=== PATIENT | male | born 1970 | race Caucasian/White ===

== ENCOUNTER → 2017-12-18 14:22 | Outpatient (CLI) | payer OTHER, SELFPAY ==
--- NOTE | 2017-12-18 14:49 | DI.REPORT_ITS ---
SYMPTOMS/DIAGNOSIS: PAIN, SWELLING, LEG MASS, R22.40, ? DVT LEFT LEG ULTRASOUND: There is no evidence of DVT. There is an irregular-shaped hypoechoic heterogeneous mass in the lower leg just superior and medial to the ankle, which does not exhibit color flow. This mass measures 1.1 x 0.8 x 0.5 cm. The findings to be correlated with the patient's clinical status.
== END ==
PROVIDERS: PCP Family Medicine; Visit Provider Nurse Practitioner
DX: R22.42 Localized swelling, mass and lump, left lower limb (principal); M79.605 Pain in left leg
CPT/HCPCS: 93971

== ENCOUNTER 2018-03-03 01:26 | Outpatient (CLI) | payer OTHER, SELFPAY ==
--- NOTE | 2018-03-03 | PFT_ITS ---
PULMONARY FUNCTION TEST REPORT Patient identification - Pawel Madison DATE OF - 70 DATE OF SERVICE - 03/03/2018 REQUESTING PROVIDER - Caitlyn Handy NP INTERPRETATION OF STUDY Spirometry shows no evidence of obstructive airways disease. No bronchodilator response. LUNG VOLUMES - Lung volumes show no evidence of restriction. There is mild hyperinflation and air trapping. DIFFUSION CAPACITY- Normal. AIRWAY RESISTANCE - Normal. IMPRESSION Normal pulmonary function study. Clinical correlation recommended. Simin Felder/jam T - 03/04/2018 METHACHOLINE CHALLENGE TEST REPORT Patient identification - Pawel Madison DATE OF [facility] - 70 DATE OF SERVICE - 03/03/2018 REQUESTING PROVIDER - Caitlyn Handy NP INTERPRETATION OF STUDY Good patient effort after normal pulmonary function testing. Methacholine challenge testing was carried out up to a methacholine concentration of 2 mg/ml at which point, the patient had a 26% drop in FEV1. IMPRESSION Strongly positive methacholine challenge test, clinical correlation recommended. Simin Felder T - 03/04/2018
== END 2018-03-03 01:46 ==
PROVIDERS: PCP Nurse Practitioner Family; Visit Provider Nurse Practitioner Family
DX: R06.00 Dyspnea, unspecified (principal); R07.89 Other chest pain
CPT/HCPCS: 94060; 94150; 94726; 94729; 95070; 94010; J7674

== ENCOUNTER 2019-07-19 16:54 | Outpatient (REF) | payer OTHER, SELFPAY ==
[2019-07-19 20:55] LABS: Calculated LDL 108 mg/dL (<100); Cholesterol 177 mg/dL (<200); HDL Cholesterol 39 mg/dL (40-60); Triglyceride 153 mg/dL (<150)
== END 2019-07-19 17:14 ==
LOC: NCHCN 16:54
PROVIDERS: PCP Nurse Practitioner Family; Visit Provider Nurse Practitioner Family
DX: Z00.00 Encounter for general adult medical examination without abnormal findings (principal); Z13.220 Encounter for screening for lipoid disorders; J45.20 Mild intermittent asthma, uncomplicated; R51 Headache
CPT/HCPCS: 80061

== ENCOUNTER 2023-01-16 10:36 | Day surgery (SDC) | payer OTHER, SELFPAY ==
--- NOTE | 2023-01-15 21:57 | W.PM.DSUDISC ---
Date of service: 01/16/23 Time of Service: 13:30 Discharge Plan Disposition Patient Disposition: Home Condition: Good Discharge Details Reason For Visit: Screening colonoscopy Attending Provider: Amol Curry Primary Care Provider: Caitlyn Handy Home Meds and New Rx's Prescriptions: Continued loratadine 10 mg tablet 10 mg PO DAILY fluticasone propionate 50 mcg/actuation spray,suspension 1 spray intranasal DAILY Rx Instructions: administer into each nostril albuterol sulfate 90 mcg/actuation HFA aerosol inhaler 2 puff inhalation Q6H PRN calcium carbonate [Calcium 500] 500 MG tablet 500 mg PO DAILY diphenhydramine HCl [Benadryl] 25 MG capsule 25 mg PO DIRECTED melatonin-pyridoxine HCl (B6) 1 EACH tablet 10 mg PO HS Discontinued polyethylene glycol 3350 17 gram/dose powder 17 g PO ONCE Qty: 238 0RF Rx Instructions: Take per colonoscopy instructions provided by ordering providers office bisacodyl [Dulcolax (bisacodyl)] 5 mg tablet,delayed release (DR/EC) 5 mg PO ONCE Qty: 4 0RF Rx Instructions: Take per colonoscopy instructions provided by ordering providers office Discharge Instructions Additional Instructions: Right, you did great with your colonoscopy today. The quality of your prep was excellent. I had great visualization. The colonoscopy was totally normal. I did not see any evidence of tumors or polyps. You should consider another screening colonoscopy in 10 years. 1. If tolerated, consume a soft, low fiber diet for 1-2 days. 2[address] Do not drive, drink alcohol, operate machinery, make critical decisions, or do activities that require coordination or balance for 24 hours. 3. Because air was put into your colon during the procedure, expelling air from your rectum (passing gas or farting) is normal. 4. You may not have a bowel movement for 1-3 days because of the colonoscopy prep. This is normal. 5. Go directly to the emergency room if you notice any of the following: Develop chills (warm to touch), or if you have a thermometer and your temperature is above 101 Difficulty breathing or difficultly swallowing Persistent vomiting Severe abdominal pain, other than gas cramps Severe chest pain Black, tarry stools Any bleeding ? exceeding one tablespoon 6. Call your physician if the site where your intravenous was started becomes red, swollen, painful, and warm to touch. 7. Your physician has reviewed your pre-procedure medications. Please continue to take those medications as previously ordered. You will be given specific information/education regarding any changes to your medications before leaving. Activity:: Activity as Tolerated Diet:: As Tolerated Discharge Orders Discharge Orders: Discharge Order (Routine); Ordered 01/15/23 Ordered By: Amol Curry DS: Diagnosis Discharge Diagnosis (1) Screen for colon cancer: Status: Acute Asessment and Plan: Negative screening colonoscopy
--- NOTE | 2023-01-15 21:58 | W.COLOREPORT ---
Date of service: 01/16/23 Time of Service: 13:31 Colonoscopy Report Date of procedure: 01/16/23 Pre-op diagnosis general: Screening colonoscopy Post-op diagnosis procedure note: other (Negative screening colonoscopy) Procedure: Colonoscopy Surgeon: Amol Curry Anesthesia Type: General:No Airway Estimated blood loss (mL): 0 Pathology: none sent Complications: None Disposition: same day Indications: Pawel is a 52-year-old male who is here for screening colonoscopy Prep: Miralax/Dulcolax Procedure Start Time: 13:00 Procedure End Time: 13:15 Retraction Time: 10 Findings: Negative screening colonoscopy Procedure Description: After the induction of monitored anesthetic care, and with the patient in left lateral decubitus position, I began by performing an external anorectal exam.? Perineum and skin were normal, as was the anal verge.? There was no evidence of external hemorrhoids.? Next, I performed a digital rectal exam.? I did not appreciate any abnormal findings.? Next, I advanced a colonoscope into the rectal vault.? I performed retroflexion.? this was normal.? Using insufflation, I then advanced the colonoscope beyond the rectal folds and into the sigmoid colon before advancing towards the cecum.? The quality of the prep was excellent.? The scope was noted to be in the cecum by identification of the ileocecal valve and appendiceal orifice.? I then began withdrawing the colonoscope using repeated irrigation as necessary for full evaluation of the colonic mucosa. ?Once the scope was withdrawn to the level of the rectum, great care was taken to examine portions of the rectal folds.? I did not see any signs of tumors, polyps, diverticulosis, or any other pathology. Finally, the scope was withdrawn and the patient was brought to the same-day surgery recovery unit as the anesthetic wore off. ?The findings and instructions were shared with the patient prior to discharge.
[2023-01-16 10:45] VITALS: BP 146/87; PULSE 70; RESP 18; TEMP 36.8; O2SAT 100
[2023-01-16] MEDS: Lactated Ringers 1,000 ML 80 ML IV (11:03)
--- NOTE | 2023-01-16 11:36 | W.ANESPRE ---
General Info Date of Service Date Performed: 01/16/23 Height: 5 ft 10 in Weight: 78.2 kg Body Mass Index (BMI): 24.7 Surgical Procedure: Operation Date: 01/16/23 12:05 Proposed Procedure Side Surgeon aashish Curry MD Meds Allergies and Home Medications Allergies Allergy/AdvReac Type Severity Reaction Status Date / Time No Known Allergies Allergy Verified 01/16/23 10:56 Home Medication Medication Instructions Recorded Benadryl 25 mg capsule 25 mg PO DIRECTED 12/19/17 (diphenhydramine HCl) Calcium 500 500 mg calcium (1,250 500 mg PO DAILY 12/19/17 mg) tablet (calcium carbonate) melatonin-pyridoxine HCl (vitamin 10 mg PO HS 12/26/17 B6) 5 mg-10 mg tablet albuterol sulfate 90 mcg/actuation 2 puff inhalation Q6H PRN 01/09/23 aerosol inhaler fluticasone propionate 50 1 spray intranasal DAILY 01/09/23 mcg/actuation nasal spray,suspension loratadine 10 mg tablet 10 mg PO DAILY 01/09/23 Current Visit Medications: Current Medications Generic Name Dose Route Start Last Admin Trade Name Freq PRN Reason Stop Dose Admin Hyoscyamine Sulfate 0.125 mg 01/15/23 22:00 Hyoscyamine 0.125 Mg Sl/Oral/Chew SL 02/14/23 21:59 DIRECTED PRN Ringer's Solution 1,000 mls @ 80 mls/hr 01/16/23 06:00 01/16/23 11:03 IV 02/14/23 23:59 80 mls/hr INFUSION JUANY Administration IV Miscellaneous Supplies 1 each 01/16/23 06:00 Iv Access IV 02/14/23 23:59 DIRECTED JUANY Ondansetron HCl 4 mg 01/15/23 22:00 Ondansetron 4 Mg/2 Ml Vial IVP 02/14/23 21:59 Q4H PRN PRN Nausea / Vomiting Sodium Chloride 0 ml 01/16/23 06:00 Normal Saline Flush 10 Ml Syr IV 02/14/23 23:59 PRN PRN Sodium Chloride 0 ml 01/16/23 06:00 Normal Saline 10 Ml Vial IJ 02/14/23 23:59 DIRECTED PRN Sterile Water 0 ml 01/16/23 06:00 Water,Injection,Sterile 10 Ml Vial IJ 02/14/23 23:59 DIRECTED PRN PFSH Active Problems Active Problems: Problem Status Onset Code Screen for colon cancer Z12.11 Medical History Medical History Asthma Back pain Chest heaviness pt. states this was dx as asthma Chronic headaches Constipation Insomnia Joint pain Mass of left lower leg Sinusitis Surgical History Surgical History (Updated 01/16/23 @ 10:54 by Thelma Grady RN) Hx of colonoscopy Hx of tonsillectomy Tobacco Smoking/Tobacco Use Status: Former Tobacco Use Alcohol Alcohol Intake: never Substance Use Substance use: Never Substance use type: does not use Vital Signs and Lab Results Vital Signs Most Recent Vital Signs in EMR: Most Recent Vital Signs Temp Pulse Resp BP Pulse Ox 36.8 C 70 18 146/87 H 100 01/16/23 10:45 01/16/23 10:45 01/16/23 10:45 01/16/23 10:45 01/16/23 10:45 Lab Results Blood Type / Crossmatch: No Data to Display Complete Blood Count: No Data to Display Complete Metabolic Panel: No Data to Display Liver Function Panel: No Data to Display Coagulation Panel: No Data to Display Cardiac Panel: No Data to Display Arterial Blood Gas: No Data to Display Venous Blood Gas: No Data to Display Pancreas Panel: No Data to Display Thyroid Panel: No Data to Display Infectious Disease: No Data to Display Blood Cultures: No Data to Display Toxicology Panel: No Data to Display Anesthesia Assessment and Plan Anesthesia History Personal History: No History of Anesthesia Complications Family History: No Family History of Anesthesia Complications Exercise Tolerance Exercise Tolerance: Metabolic Equivalents>4 Pertinent Negatives Pertinent Negatives: No Symptoms of GERD Cardiac & Pulmonary Exam Cardiac Exam: Normal S1/S2 Heart Sounds Pulmonary Exam: Clear Bilateral Breath Sounds Implantable Cardiac Device Does patient have a Pacemaker or an ICD?: No Airway Exam Known Difficult Airway: No Mallampati Class: 3 Mouth Opening: Normal (> 3cm) Thyromental Distance: Greater than 3 cm Neck Range of Motion: Full ROM Neck Circumference: Normal Teeth Condition: Normal Dentition ASA Classification ASA Score: ASA 2 Emergency Case?: No NPO Status NPO Status: NPO Clears >2 hours, Solids >8 hours Anesthesia Plan Resuscitation Status: Full Code Anesthesia Technique: General Anesthesia Airway Planned: Natural Airway Monitors Used: Standard Monitors
[2023-01-16 11:38] VITALS: BMI 24.7
[2023-01-16 13:25] VITALS: BP 106/69; PULSE 61; RESP 18; TEMP 36.3; O2SAT 96
[2023-01-16 13:54] VITALS: BP 116/74; PULSE 68; RESP 18; TEMP 36.3; O2SAT 100
--- NOTE | 2023-01-16 14:06 | W.ANESPOSTOP ---
Postoperative Evaluation Date, Time and Location Date Performed: 01/16/23 Time Performed: 14:06 Patient Location: Day Surgery Unit Vital Signs Most Recent Imported Vital Signs: Most Recent Vital Signs Temp Pulse Resp BP Pulse Ox 36.3 C L 68 18 116/74 100 01/16/23 13:54 01/16/23 13:54 01/16/23 13:54 01/16/23 13:54 01/16/23 13:54 Pain Score Most Recent Pain Score: Most Recent Pain Score Pain Level 0 01/16/23 13:54 Assessment Mental Status: Awake (Alert & Oriented to Patient Baseline) Airway and Respiratory Function: Patent airway with normal (patient baseline) respiratory exam Cardiovascular Function: Hemodynamically Stable Hydration Status: Adequately Hydrated Nausea & Vomiting: No Nausea or Vomiting Pain: Pt. Denies Any Pain Peripheral Nerve Block: Patient did not receive a nerve block
== END 2023-01-16 14:25 | disposition home or self-care (01) ==
PROVIDERS: PCP Nurse Practitioner Family; Visit Provider Surgery
PROC: 0DJD8ZZ Inspection of Lower Intestinal Tract, Via Natural or Artificial Opening Endoscopic (ICD-10-PCS; CPT 45378; principal; 2023-01-16 12:00)
DX: Z12.11 Encounter for screening for malignant neoplasm of colon (principal); J45.909 Unspecified asthma, uncomplicated; G47.00 Insomnia, unspecified; K59.00 Constipation, unspecified
CPT/HCPCS: 45378

== ENCOUNTER 2023-08-01 21:42 | Outpatient (REF) | payer OTHER, SELFPAY ==
[2023-08-01 21:47] LABS: Calculated LDL 115 mg/dL (<100); Cholesterol 198 mg/dL (<200); HDL Cholesterol 40 mg/dL (40-60); Triglyceride 215 mg/dL (<150)
== END 2023-08-01 21:43 | disposition home or self-care (01) ==
LOC: NCHCN 21:42
PROVIDERS: PCP Nurse Practitioner Family; Visit Provider Nurse Practitioner Family
DX: E78.2 Mixed hyperlipidemia (principal); Z13.6 Encounter for screening for cardiovascular disorders
CPT/HCPCS: 80061

== ENCOUNTER 2024-02-02 21:45 | Outpatient (REF) | payer OTHER, SELFPAY ==
[2024-02-02 22:22] LABS: Bilirubin Negative (Negative); Blood Trace-intact (Negative); Clarity Clear (Clear); Glucose Negative (Negative); Ketones Negative (Negative); Leukocyte Esterase Negative (Negative); Nitrite Negative (Negative); Urobilinogen 0.2 mg/dL (Up to 0.2)
[2024-02-02 22:36] LABS: Bacteria Negative HPF (Negative); C & S Indicated? No; Casts Negative LPF (Negative); Crystals Negative HPF (Negative); Epithelial Cells Negative HPF (Negative); Mucus Negative (Negative); RBC 0-2 HPF (0-2); WBC 0-2 HPF (0-5)
[2024-02-02 22:37] LABS: COMMENT (LAB VIEW ONLY) 14.44 mg/dL; Microalb ug/mg Crea 20.1 ug/mg Cr
== END 2024-02-02 21:46 | disposition home or self-care (01) ==
LOC: NCHCN 21:45
PROVIDERS: PCP Nurse Practitioner Family; Visit Provider Nurse Practitioner Family
DX: I10 Essential (primary) hypertension (principal)
CPT/HCPCS: 81003; 81015; 82043; 82570